=== PATIENT | male | born 1985 | race Asian ===

== ENCOUNTER 2022-02-19 11:18 | Outpatient (CLI) | payer BC, SELFPAY ==
[2022-02-19 13:29] LABS: Glucose* 99 mg/dL (60-115)
== END 2022-02-19 11:19 | disposition home or self-care (01) ==
LOC: NFLDREF 11:19
PROVIDERS: PCP Family Medicine; Visit Provider Family Medicine
DX: Z13.1 Encounter for screening for diabetes mellitus (principal); R73.03 Prediabetes; R10.30 Lower abdominal pain, unspecified
CPT/HCPCS: 82947

== ENCOUNTER 2022-12-01 07:32 | Day surgery (SDC) | payer BC, SELFPAY ==
[2022-12-01] VITALS (20 sets, daily range): BP systolic 97–129; BP diastolic 58–85; PULSE 70–88; RESP 12–16; TEMP 36.4–36.6; O2SAT 96–99; BMI 25.9
[2022-12-01] MEDS: BUPIVACAINE 0.25% 30 ML INJECTION (10:41)
--- NOTE | 2022-12-01 10:45 | P.GSOP_ITS ---
Operative Note Date of procedure: 12/01/22 Pre-op diagnosis: Right inguinal hernia Post-op diagnosis: Same Type of Procedure: Laparoscopic left inguinal hernia repair with mesh Indications: The patient is a 37-year-old male who developed a symptomatic right inguinal hernia. After discussing options he agreed to proceed with repair Procedure Description: After discussing the risks and benefits of the procedure, the patient signed informed consent.? The operative site was marked and the patient was brought to the operating room and placed on the operating table in supine position.? Care was taken to pad the patient's pressure points.?? The patient was then intubated by anesthesia.?? The operative site was then prepped and draped in the usual sterile fashion.? A time-out was then performed. A curvilinear incision was made below the umbilicus. Dissection was carried down to subcutaneous tissue until the anterior rectus fascia was encountered. This was incised off the midline on the right. The rectus muscle fibers were then retracted exposing the posterior fascia. A port with a dissecting balloon was th en introduced into the pre-preperitoneal space. This was inflated under direct vision. The balloon was deflated, removed, and a 10 mm working port was placed. The space was insufflated and a 10 mm 30-degree scope was then advanced into the space. Two 5 mm ports were placed in the midline under direct vision. Dissection began on the right side. Hilton's ligament and the pubic bone were exposed me dially. Following this, dissection was carried out laterally. An indirect defect was noted. The sac was dissected free from the cord structures using a combination of sharp and blunt dissection. A small hole was created in the sac during dissection. There was a medium size cord lipoma attached to the end of the sac which was reduced. Once the sac was completely reduced, a piece of Bard 3DMax mesh for the appropriate side was placed into the abdomen. This was positioned with the marker pointed medially. A Tacker was used to attach the mesh medially at Hilton's ligament and 1 tack laterally with care to avoid the epigastric vessels and stay above the inguinal ligament. The peritoneal hole was then found in used to evacuate any pneumoperitoneum that accumulated during the case. This was then closed with clips. Once this was completed the sac was placed on top of the mesh and the preperitoneal space desufflated under direct vision to ensure the mesh laid flat. 10 mL of 0.5% Marcaine were instilled into the preperitoneal space through a port. The ports were removed. The fascia from the infraumbilical port was closed with 0 Vicryl. The skin incisions were closed with absorbable subcuticular suture. Sterile dressings were then applied. The scrotum was examined to ensure that both testicles were down. Instrument sponge and needle counts were correct at the end of the case. ? The patient was then woken and transported to the recovery area in stable condition. ? The patient tolerated the procedure well. Findings: Indirect right inguinal hernia with cord lipoma. Implants: Right-sided Bard 3DMax mesh Anesthesia: GETA Surgeon: Sallie Baez MD Estimated blood loss (mL): 15 Condition: stable Disposition: PACU
[2022-12-01] MEDS: LACTATED RINGERS 1000 ML 1,000 ML 100 ML IV ×2 (11:01→11:56)
--- NOTE | 2022-12-01 11:09 | W.ANESCHARGE ---
Anesthesia Charges Start Date/Time Anesthesia Start Date: 12/01/22 Anesthesia Start Time: 09:19 Stop Date/Time Anesthesia Stop Date: 12/01/22 Anesthesia Stop Time: 11:06
== END 2022-12-01 13:35 | disposition home or self-care (01) ==
PROVIDERS: PCP Family Medicine; Visit Provider Surgery
PROC: (CPT 49650; principal; 2022-12-01 08:45)
DX: K40.90 Unilateral inguinal hernia, without obstruction or gangrene, not specified as recurrent (principal)
CPT/HCPCS: 49650; 00830; C1781; J0330; J1100; J2250; J2405; J2704; J3010; J3490; J7120